=== PATIENT | female | born 1990 | race Caucasian/White ===

== ENCOUNTER 2016-07-18 16:37 | Observation (INO) | payer OTHER ==
[2016-07-18 17:45] LABS: BASOPHIL % 0.2 % (0.0-0.4); Eosinophil % 0.7 % (0.00-5.0); Granulocytes % 74.6 % (36.0-66.0); Lymphocytes % 19.7 % (24.0-44.0); Mean Cell Volume 91.9 fl (78-100); Mean Platelet Volume 10.2 fl (6-9.5); Monocytes % 4.8 % (0.0-12.0); Platelet Count 239 K/mm3 (150-450); Red Blood Count 3.47 M/mm3 (4.1-5.4); Red Cell Distribution Width 13.5 % (11.5-14.0)
[2016-07-18 18:05] LABS: ALBUMIN 2.9 g/dL (3.4-5.0); ALKALINE PHOSPHATASE 118 U/L (46-116); ANION GAP 15.8 MEQ/L (5-15); BILIRUBIN,TOTAL 0.3 mg/dL (0.2-1.0); BLOOD UREA NITROGEN 3 mg/dL (9-20); CHLORIDE 104 mEq/L (98-107); Carbon Dioxide 23.5 mEq/L (21-32); Glucose 106 MG/DL (70-110); Potassium 3.2 mEq/L (3.5-5.1); SGOT/AST 15 U/L (15-37); SGPT/ALT 16 U/L (12-78); SODIUM 140 mEq/L (136-145)
[2016-07-18 18:41] LABS: Mean Corpuscular Hemoglobin 29.6 pg (26-32)
[2016-07-18 21:19] VITALS: BP 116/53; PULSE 67
== END 2016-07-18 19:40 | disposition home or self-care (01) ==
LOC: UNDOADMOB 16:37 → OB 16:37 → UNDODISOB 19:40
PROVIDERS: ADMIT Family Medicine; ATTEND Family Medicine
DX: Z34.83 Encounter for supervision of other normal pregnancy, third trimester (principal)
CPT/HCPCS: 36415; 59025; 80053; 80307; 84550; 85025; G0378

== ENCOUNTER 2016-08-03 13:13 | Inpatient (IN) | payer OTHER ==
[2016-08-03] MEDS ORDERED: Cervidil 10 MG VAG SCH (20:00)
[2016-08-03] MEDS ORDERED: BRETHINE 1 MG/ML SQ PRN (20:00)
[2016-08-03 22:10] LABS: BASOPHIL % 0.2 % (0.0-0.4); Eosinophil % 0.5 % (0.00-5.0); Lymphocytes % 17.2 % (24.0-44.0); Mean Cell Volume 91.2 fl (78-100); Mean Corpuscular Hemoglobin 30.1 pg (26-32); Mean Platelet Volume 11.4 fl (6-9.5); Monocytes % 4.1 % (0.0-12.0); Platelet Count 276 K/mm3 (150-450); Red Blood Count 3.85 M/mm3 (4.1-5.4); Red Cell Distribution Width 13.6 % (11.5-14.0); White Blood Count 15.1 K/mm3 (4.0-10.5)
[2016-08-04] MEDS ORDERED: Nubain 10 MG/ML IV PRN (04:10)
[2016-08-04] MEDS ORDERED: Lactated Ringers 1,000 ML IV ONE (07:37)
[2016-08-04] MEDS ORDERED: Ephedrine Sulfate 50 MG/ML IV PRN (07:46)
[2016-08-04] MEDS: Lactated Ringers 1,000 ML IV ONE (08:00)
[2016-08-04] MEDS: OB EPIDURAL NAROPIN/SUFENTANIL IN NACL EPIDURAL PRN ×2 (08:00→15:36)
[2016-08-04] MEDS: Lactated Ringers 1,000 ML IV SCH ×2 (09:00→15:00)
[2016-08-04] MEDS ORDERED: TYLENOL EXTRA STRENGTH 500 MG PO PRN ×2 (10:26→17:50)
[2016-08-04] MEDS ORDERED: STADOL 2 MG IV PRN (10:26)
[2016-08-04] MEDS ORDERED: Phenergan 25 MG INJ IV PRN (10:26)
[2016-08-04] MEDS ORDERED: Zofran 4 MG/2 ML VIAL IV PRN (10:26)
[2016-08-04] MEDS ORDERED: PITOCIN 30 UNITS/ LR 500 ML 500 ML IV SCH (11:30)
[2016-08-04] MEDS ORDERED: LANSINOH 40 GM TOP PRN (17:50)
[2016-08-04] MEDS ORDERED: Dulcolax 10 MG SUPP PR PRN (17:50)
[2016-08-04] MEDS ORDERED: Restoril 15 MG PO PRN (17:50)
[2016-08-04] MEDS ORDERED: CORTISONE 1% CREAM TP PRN (17:50)
[2016-08-04] MEDS ORDERED: Dermoplast Spray TP PRN (17:50)
[2016-08-04] MEDS ORDERED: Ambien 10 MG PO PRN (17:50)
[2016-08-04] MEDS ORDERED: Anucort-HC SUPPOSITORY PR PRN (17:50)
[2016-08-04] MEDS: TUCKS TP PRN (20:58)
[2016-08-04] MEDS: MOTRIN 400 MG PO PRN (21:15)
[2016-08-04] MEDS: Tylenol #3 Tablet PO PRN (23:44)
[2016-08-04] MEDS: Colace 100 MG PO SCH (23:44)
[2016-08-05] MEDS: Tylenol #3 Tablet PO PRN ×4 (05:34→20:04)
[2016-08-05 06:32] LABS: BASOPHIL % 0.2 % (0.0-0.4); Granulocytes % 67.7 % (36.0-66.0); Mean Cell Volume 93.2 fl (78-100); Mean Platelet Volume 10.9 fl (6-9.5); Monocytes % 7.1 % (0.0-12.0); Platelet Count 229 K/mm3 (150-450); Red Blood Count 2.93 M/mm3 (4.1-5.4); Red Cell Distribution Width 13.8 % (11.5-14.0)
[2016-08-05 06:34] LABS: Mean Corpuscular Hemoglobin 29.6 pg (26-32)
[2016-08-05] MEDS: FERREX 150 PO SCH (08:14)
[2016-08-05] MEDS: MOTRIN 400 MG PO PRN (08:14)
[2016-08-05] MEDS: Colace 100 MG PO SCH ×2 (08:14→20:04)
[2016-08-05] MEDS ORDERED: Adacel Vial IM ONE (09:00)
[2016-08-05] MEDS: Lactated Ringers 1,000 ML IV ONE (10:43)
[2016-08-05] MEDS: Lactated Ringers 1,000 ML IV SCH ×2 (10:44→10:45)
[2016-08-05] MEDS ORDERED: Nicoderm CQ 21 MG TOP SCH (17:00)
[2016-08-05] MEDS: TUCKS TP PRN (20:07)
[2016-08-06] MEDS: Tylenol #3 Tablet PO PRN ×3 (01:24→14:58)
[2016-08-06] MEDS: FERREX 150 PO SCH (08:49)
[2016-08-06] MEDS: Colace 100 MG PO SCH (08:49)
[2016-08-06] MEDS: MOTRIN 400 MG PO PRN (11:30)
[2016-08-06 18:23] VITALS: BP 138/71; PULSE 85
== END 2016-08-06 18:15 | disposition home or self-care (01) | DRG 775 ==
LOC: OB 19:19 → OBSVTOIN 08-04 07:23
PROVIDERS: ADMIT Family Medicine; ATTEND Family Medicine
PROC: 10907ZC Drainage of Amniotic Fluid, Therapeutic from Products of Conception, Via Natural or Artificial Opening (ICD-10-PCS; principal; 2016-08-04)
PROC: 10E0XZZ Delivery of Products of Conception, External Approach (ICD-10-PCS; 2016-08-04)
PROC: 3E0P7GC Introduction of Other Therapeutic Substance into Female Reproductive, Via Natural or Artificial Opening (ICD-10-PCS; 2016-08-04)
DX: O75.5 Delayed delivery after artificial rupture of membranes (principal); Z3A.39 39 weeks gestation of pregnancy; Z37.0 Single live birth; D64.89 Other specified anemias
CPT/HCPCS: 01967; 36415; 80307; 85025; 87086; 90715; G0378; J2300; J2795

== ENCOUNTER 2017-06-13 12:37 | Emergency (ER) | payer OTHER ==
[2017-06-13] MEDS ORDERED: DUONEB 0.5-3 MG/3 ml Neb IH ONE ×2 (13:11→13:29)
--- NOTE | 2017-06-13 13:18 | ERPHSYRPT ---
- History of Present Illness Time Seen by Provider: 06/13/17 12:39 Source: patient, family Exam Limitations: no limitations Patient Subjective Stated Complaint: to er c/o cough and feels it is difficult to take a deep breath. 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 pt states unable to bring up sputum Triage Nursing Assessment: to er c/o cough and difficulty clearing secetions pt states no sob present pt in no distress. Resp easy non labored pt pale/w/d a@ox3 Physician History: non-productive cough x a week; no fever; chills; 22 weeks ; EDC 2;24;18 ; ; no problems with ; sore throat; kids all sick; no or vomiting or diarrhea; no travel; with sinus congestion Timing/Duration: week(s) (1), gradual onset, worse Cough Quality/Degree: mild, dry cough Possible Cause: no prior episodes Modifying Factors: Improves With: coughing Associated Symptoms: cough, nasal congestion, sinus infection, sore throat, wheezing International travel in last 2 weeks: No Allergies/Adverse Reactions: No Known Drug Allergies Allergy (Verified 12/04/15 07:11) Home Medications: No Home Meds [No Home Meds] 1 ea UD 12/04/15 [History] Hx Tetanus, Diphtheria Vaccination/Date Given: No Hx Influenza Vaccination/Date Given: No Hx Pneumococcal Vaccination/Date Given: No - Review of Systems Constitutional: No Symptoms Eyes: No Symptoms Ears, Nose, & Throat: Nose Congestion, Sinus Drainage, Throat Pain, Hoarse, No Ear Pain, No Tinnitus, No Epistaxis, No Stridor Respiratory: Cough, Wheezing, No Cyanosis, No Dyspnea Cardiac: No Chest Pain, No Palpitations, No Syncope Abdominal/Gastrointestinal: Nausea, No Abdominal Pain, No Vomiting, No Diarrhea Genitourinary Symptoms: No Symptoms Musculoskeletal: Myalgias, No Back Pain, No Neck Pain, No Fall, No Joint Redness Skin: No Symptoms Neurological: No Symptoms Psychological: No Symptoms Endocrine: No Symptoms Hematologic/Lymphatic: No Symptoms Immunological/Allergic: No Symptoms - Past Medical History Pertinent Past Medical History: Yes Neurological History: No Pertinent History ENT History: No Pertinent History Cardiac History: No Pertinent History Respiratory History: Bronchitis, Emphysema, Pneumonia Endocrine Medical History: No Pertinent History Musculoskeletal History: No Pertinent History GI Medical History: Gallbladder Disease History: No Pertinent History Psycho-Social History: No Pertinent History Female Reproductive Disorders: No Pertinent History Other Medical History: cholelithasis. meningitis - Past Surgical History Past Surgical History: No Neuro Surgical History: No Pertinent History Cardiac: No Pertinent History Respiratory: No Pertinent History Gastrointestinal: No Pertinent History Genitourinary: No Pertinent History Musculoskeletal: No Pertinent History Female Surgical History: No Pertinent History Other Surgical History: dental wisdom teeth at age 18 - Social History Smoking Status: Current every day smoker How long have you smoked: 6 y Exposure to second hand smoke: No Alcohol Use: Socially Drug Use: none Patient Lives Alone: No Significant Family History: no pertinent family hx - Female History Hx Last Menstrual Period: 10/17/16 Hx Now: Yes Expected Date of Delivery: 08/10/17 - Nursing Vital Signs Nursing Vital Signs: Initial Vital Signs Temperature 98.0 F 06/13/17 12:50 Pulse Rate 70 06/13/17 12:50 Respiratory Rate 18 06/13/17 12:50 Blood Pressure 114/51 06/13/17 12:50 O2 Sat by Pulse Oximetry 97 06/13/17 12:50 Pain Scale Pain Intensity 0 - Physical Exam General Appearance: mild distress, alert, thin, other (22 weeks ) Eye Exam: PERRL/EOMI, eyes nml inspection, No photophobia Ears, Nose, Throat Exam: normal ENT inspection, TMs normal, moist mucous membranes, No pharynx normal (thick pnd), No tonsillar exudate Neck Exam: normal inspection, non-tender, supple, full range of motion, No meningismus, No lymphadenopathy Respiratory Exam: respiratory distress (mild tachypnea), airway intact, wheezing , No chest tenderness, No prolonged expirations, No rhonchi, No stridor Cardiovascular Exam: regular rate/rhythm, normal heart sounds, normal peripheral pulses, capillary refill <2 sec, No murmur Gastrointestinal/Abdomen Exam: soft, normal bowel sounds, distention (22 weeks ), other (god movement and FHT), No tenderness, No rebound, No organomegaly Pelvic Exam: deferred Rectal Exam: deferred Back Exam: normal inspection, normal range of motion, No CVA tenderness Extremity Exam: normal inspection, normal range of motion, No abel's sign, No pedal edema Neurologic Exam: alert, oriented x 3, cooperative, braille proofreader II-XII nml as tested, normal mood/affect, nml cerebellar function, nml station & gait Skin Exam: normal color, warm, dry, No rash, No petechiae Lymphatic Exam: No adenopathy SpO2 Interpretation: normal SpO2: 96 Oxygen Delivery: Room Air - Course Nursing assessment & vital signs reviewed: Yes Ordered Tests: Active Orders 24 hr Category Date Time Status Pulse Oximetry (ED) STAT Care 06/13/17 13:11 Active Re-Check Vital Signs STAT Care 06/13/17 13:12 Active Peak Expiratory Flow Rate ONCE RT 06/13/17 13:11 Completed Respiratory Nebulizer STAT RT 06/13/17 13:12 Completed Medication Summary Discontinued Medications Generic Name Dose Route Start Last Admin Trade Name Freq PRN Reason Stop Dose Admin Albuterol/Ipratropium 3 ml 06/13/17 13:11 06/13/17 13:31 Duoneb 0.5-3 Mg/3 Ml Neb IH 06/13/17 13:12 3 ml STAT ONE Administration Albuterol/Ipratropium Confirm 06/13/17 13:29 Duoneb 0.5-3 Mg/3 Ml Neb Administered 06/13/17 13:30 Dose 3 ml IH .STK-MED ONE Lab/Rad Data: Laboratory Results 06/13/17 Range/Units Unknown Influenza Type A Ag NEGATIVE (NEGATIVE) Influenza Type B Ag NEGATIVE (NEGATIVE) RSV (PCR) NEGATIVE (Negative) reviewed - Progress Progress: improved (after treatments), re-examined (after labs and resp treatment) Air Movement: fair Progress Note: 06/13/17 13:18 will give duonebs and check resp lab and recheck; family at bedside 06/13/17 13:46 peak flow pre 300/ post 350 will recheck 06/13/17 14:07 rechecked and some improvement clinically post duoneb; BS improved; cough decrease; less wheezing; will monitor and recheck after labs; smoking cessation discussed 06/13/17 14:47 influ and rsv neg 06/13/17 14:51 rechecked and mild improvement; went over findigns and lab; instructions given Blood Culture(s) Obtained: No Counseled pt/family regarding: lab results, diagnosis, need for follow-up, smoking cessation - Departure Time of Disposition: 14:52 Departure Disposition: Home Clinical Impression: , URI with cough and congestion Condition: Stable Critical Care Time: No Referrals: ROBBY SCHMITZ [Primary Care Provider] - Instructions: Cough -- Adult Additional Instructions: clear fluids; rest; stop smoking ; follow up lmd Follow-up with family doctor as directed. Call for appointment. Return if any problems. If you smoke please stop. Call or follow up with your family doctor for assistance if you need it to stop. Please wear your seatbelt when driving. Have a nice day. Thank you for allowing us to participate in your care today. :o) Dr Morris Cuenca
[2017-06-13 14:01] VITALS: O2SAT 96
[2017-06-13 14:54] VITALS: BP 114/51; PULSE 76
== END 2017-06-13 14:59 | disposition home or self-care (01) ==
LOC: ED 12:37
DX: O26.892 Other specified pregnancy related conditions, second trimester (principal); Z3A.22 22 weeks gestation of pregnancy; J06.9 Acute upper respiratory infection, unspecified; R05 Cough; R09.81 Nasal congestion
CPT/HCPCS: 87631; 94150; 94640; 99283; A9270-GY

== ENCOUNTER 2017-07-30 16:18 | Observation (INO) | payer OTHER ==
[2017-07-30 16:28] VITALS: O2SAT 100
[2017-07-30] MEDS ORDERED: BACIGUENT PACKET TP ONE (16:33)
[2017-07-30] MEDS ORDERED: BACIGUENT PACKET ONE ×2 (16:34→17:06)
--- NOTE | 2017-07-30 16:39 | ERPHSYRPT ---
- History of Present Illness Time Seen by Provider: 07/30/17 16:29 Source: patient Exam Limitations: no limitations Physician History: 26-year-old white female who states she is 39 weeks . Arrives with complaint of pain and abrasion to her right forearm. Patient states she fell at 2:30. She denies any other complaints she denies any abdominal pain she states her baby is moving around fine. Past medical history includes bronchitis, emphysema, pneumonia, gallbladder disease, cholelithiasis, meningitis. Past surgical history includes wisdom teeth. Occurred: this afternoon (2:30 this afternoon) Method of Injury: fell (slipped on ice) Severity of Pain-Max: mild Severity of Pain-Current: mild Extremities Pain Location: forearm: right Modifying Factors: Improves With: nothing Associated Symptoms: none Allergies/Adverse Reactions: No Known Drug Allergies Allergy (Verified 07/30/17 17:07) Home Medications: Hydroxyzine HCl 25 mg [Atarax 25 mg] 25 mg PO BID 07/30/17 [History] Hx Tetanus, Diphtheria Vaccination/Date Given: No Hx Influenza Vaccination/Date Given: No Hx Pneumococcal Vaccination/Date Given: No - Review of Systems Constitutional: No Fever, No Chills Eyes: No Symptoms Ears, Nose, & Throat: No Symptoms Respiratory: No Cough, No Dyspnea Cardiac: No Chest Pain, No Edema, No Syncope Abdominal/Gastrointestinal: Other (patient is 39 weeks ), No Abdominal Pain, No Nausea, No Vomiting, No Diarrhea Genitourinary Symptoms: No Dysuria Musculoskeletal: Other (right forearm pain) Skin: Other (several small abrasions to proximal right forearm ulnar aspect) Neurological: No Dizziness, No Focal Weakness, No Sensory Changes Psychological: No Symptoms Endocrine: No Symptoms All Other Systems: Reviewed and Negative - Past Medical History Pertinent Past Medical History: Yes Neurological History: No Pertinent History ENT History: No Pertinent History Cardiac History: No Pertinent History Respiratory History: Bronchitis, Emphysema, Pneumonia Endocrine Medical History: No Pertinent History Musculoskeletal History: No Pertinent History GI Medical History: Gallbladder Disease History: No Pertinent History Psycho-Social History: No Pertinent History Female Reproductive Disorders: No Pertinent History Other Medical History: cholelithasis. meningitis - Past Surgical History Past Surgical History: No Neuro Surgical History: No Pertinent History Cardiac: No Pertinent History Respiratory: No Pertinent History Gastrointestinal: No Pertinent History Genitourinary: No Pertinent History Musculoskeletal: No Pertinent History Female Surgical History: No Pertinent History Other Surgical History: dental wisdom teeth at age 18 - Social History Smoking Status: Current every day smoker How long have you smoked: 6 y Exposure to second hand smoke: No Alcohol Use: Socially Drug Use: none Patient Lives Alone: No Significant Family History: no pertinent family hx - Female History Hx Now: Yes (shield abdomen) - Nursing Vital Signs Nursing Vital Signs: Initial Vital Signs Temperature 98.2 F 07/30/17 16:26 Pulse Rate 78 07/30/17 16:26 Respiratory Rate 18 07/30/17 16:26 Blood Pressure 134/92 07/30/17 16:26 O2 Sat by Pulse Oximetry 100 07/30/17 16:26 Pain Scale Pain Intensity 4 - Physical Exam General Appearance: alert Eyes, Ears, Nose, Throat Exam: moist mucous membranes Neck Exam: non-tender, supple Cardiovascular/Respiratory Exam: chest non-tender, normal breath sounds, regular rate/rhythm, no respiratory distress Abdominal Exam: non-tender, No guarding Back Exam: normal inspection, No vertebral tenderness Shoulder Exam: normal inspection, non-tender, no evidence of injury, normal ROM Elbow/Forearm Exam: pain (Pain with palpation and movement right proximal forearm) Wrist Exam: normal inspection, non-tender, no evidence of injury, normal ROM Hand Exam: normal inspection, non-tender, no evidence of injury, normal ROM DTR - Upper Extremity Exam: tricep (R): 2+, tricep (L): 2+ Neuro/Tendon Exam: normal sensation, normal motor functions Mental Status Exam: alert, oriented x 3, cooperative Skin Exam: other (several small abrasions right forearm proximally ulnar aspect) SpO2 Interpretation: normal (100%) SpO2: 100 Oxygen Delivery: Room Air - Course Nursing assessment & vital signs reviewed: Yes - Radiology Exams Left Forearm X-ray Interpretation: Interpreted by me, No Fracture, No Subluxation Ordered Tests: Active Orders 24 hr Category Date Time Status Heart Tones-ED STAT Care 07/30/17 16:32 Active Wound Care STAT Care 07/30/17 16:33 Active FOREARM Stat Exams 07/30/17 16:33 Taken Medication Summary Discontinued Medications Generic Name Dose Route Start Last Admin Trade Name Freq PRN Reason Stop Dose Admin Bacitracin 0.9 gm 07/30/17 16:33 07/30/17 17:07 Baciguent Packet TP 07/30/17 16:34 0.9 gm STAT ONE Administration Bacitracin Confirm 07/30/17 16:34 Baciguent Packet Administered 07/30/17 16:35 Dose 1 gm .ROUTE .STK-MED ONE Bacitracin Confirm 07/30/17 17:06 Baciguent Packet Administered 07/30/17 17:07 Dose 1 gm .ROUTE .STK-MED ONE - Progress Progress: improved Progress Note: 07/30/17 16:38 This is a 26-year-old white female who states she is 39 weeks . She is complaining of pain in her right proximal forearm after falling on the ice this afternoon around 2:30. She denies other injury she has no abdominal pain she states that her baby is moving around fine. She does state that she has pain with movement and palpation to the right proximal forearm she has several small abrasions to the right proximal forearm ulnar aspect. She has full range of motion to her right wrist hand and fingers shoulder. heart tones have been done by the nurse that R1 147 abdomen is nontender. Will go ahead and x-ray the right forearm. We will shield the abdomen. Will have nurse clean the abrasions to her right forearm and apply bacitracin. 07/30/17 17:01 I've discussed patient's case with Dr. Ramos. Patient states she hit her left elbow and landed on her buttocks when she fell. Dr. Ramos requests that the patient be sent to labor and delivery have an ultrasound and be monitored for 4 hours. - Departure Time of Disposition: 17:20 Departure Disposition: Observation Clinical Impression: Accidental fall Qualifiers: Encounter type: initial encounter Qualified Code(s): W19.XXXA - Unspecified fall, initial encounter Contusion of left elbow Qualifiers: Encounter type: initial encounter Qualified Code(s): S50.02XA - Contusion of left elbow, initial encounter Qualifiers: Weeks of gestation: 39 weeks Qualified Code(s): Z3A.39 - 39 weeks gestation of Condition: Fair Critical Care Time: No Referrals: ROBBY RAMOS [Primary Care Provider] -
--- NOTE | 2017-07-30 20:43 | XRAY ---
Indication: Status post fall. 2-dimensional OB ultrasound performed. Comparison: July 26, 2017. Again is a single viable intrauterine in cephalic presentation. heart rate 129 BPM. Normal three-vessel cord and cord insertion previously documented. Visualized stomach and bladder are unremarkable. Placenta is again anterior fundal without abruption/previa. BPD measures 9.39 cm corresponding to 38 weeks 2 day. HC measures 33.50 cm corresponding to 38 weeks 2 days. AC measures 34.71 cm corresponding to 38 weeks 4 day. FL measures 7.40 cm corresponding to 37 weeks 6 days. DANNY is 8.8 cm. Impression: Again single viable intrauterine with mean gestational age 38 weeks 2 day. No new/acute findings. Comment: Preliminary report was given.
--- NOTE | 2017-07-30 21:00 | XRAY ---
Indication: Pain following fall. 36 weeks . Comparison: None 2 views of the right forearm obtained with patient appropriately shielded. No bony, articular, or soft tissue abnormalities.
[2017-07-30 22:20] VITALS: BP 124/72; PULSE 92
== END 2017-07-30 21:45 | disposition home or self-care (01) ==
LOC: ED 16:18 → OB 17:36
PROVIDERS: ADMIT Family Medicine; ATTEND Family Medicine
DX: Z34.83 Encounter for supervision of other normal pregnancy, third trimester (principal)
CPT/HCPCS: 73090; 76805; 99285; G0378; A9270-GY

== ENCOUNTER 2017-08-04 14:28 | Observation (INO) | payer OTHER ==
[2017-08-04 14:57] VITALS: BP 117/75; PULSE 88
== END 2017-08-04 15:33 | disposition home or self-care (01) ==
LOC: OB 14:28
PROVIDERS: ADMIT Family Medicine; ATTEND Family Medicine
DX: Z34.83 Encounter for supervision of other normal pregnancy, third trimester (principal)

== ENCOUNTER 2017-08-06 16:21 | Inpatient (IN) | payer OTHER ==
[2017-08-06] MEDS ORDERED: XYLOCAINE 1% HCL 20 ML MDV IJ PRN (16:33)
[2017-08-06] MEDS ORDERED: Nubain 10 MG/ML IV PRN (16:33)
[2017-08-06] MEDS ORDERED: Phenergan 25 MG INJ IV PRN (16:33)
[2017-08-06] MEDS ORDERED: STADOL 2 MG IV PRN (16:33)
[2017-08-06] MEDS ORDERED: Zofran 4 MG/2 ML VIAL IV PRN (16:33)
[2017-08-06] MEDS ORDERED: Lactated Ringers 1,000 ML IV SCH (17:00)
[2017-08-06] MEDS ORDERED: PITOCIN 30 UNITS/ LR 500 ML 500 ML IV SCH (17:00)
[2017-08-06] MEDS ORDERED: Ephedrine Sulfate 50 MG/ML IV PRN (17:02)
[2017-08-06] MEDS ORDERED: OB EPIDURAL NAROPIN/SUFENTANIL IN NACL EPIDURAL PRN (17:02)
[2017-08-06] MEDS ORDERED: Lactated Ringers 1,000 ML IV ONE (17:02)
[2017-08-06 19:29] VITALS: O2SAT 100
[2017-08-06 19:32] LABS: BASOPHIL % 0.3 % (0.0-0.4); Basophil (Absolute #) 0.04 (0-0.4); Eosinophil % 0.5 % (0.00-5.0); Eosinophil (Absolute #) 0.07 (0-0.5); Granulocyte Absolute (ANC) 12.33 (1.4-6.9); Granulocytes % 79.6 % (36.0-66.0); Hematocrit 33.4 % (35-47); Hemoglobin 10.9 gm/dl (12.0-16.0); Lymphocyte (Absolute #) 2.28 (1.0-4.6); Lymphocytes % 14.7 % (24.0-44.0); Mean Cell Volume 91.8 fl (78-100); Mean Corpuscular Hemoglobin 29.9 pg (26-32); Mean Corpuscular Hgb Concent. 32.6 g/dl (32-36); Mean Platelet Volume 10.5 fl (6-9.5); Monocyte (Absolute #) 0.76 (0.0-1.3); Monocytes % 4.9 % (0.0-12.0); Platelet Count 258 K/mm3 (150-450); Red Blood Count 3.64 M/mm3 (4.1-5.4); Red Cell Distribution Width 13.9 % (11.5-14.0); White Blood Count 15.5 K/mm3 (4.0-10.5)
[2017-08-06] MEDS ORDERED: Dermoplast Spray TP PRN (19:36)
[2017-08-06] MEDS ORDERED: Anucort-HC SUPPOSITORY PR PRN (19:36)
[2017-08-06] MEDS ORDERED: Dulcolax 10 MG SUPP PR PRN (19:36)
[2017-08-06] MEDS ORDERED: TUCKS TP PRN (19:36)
[2017-08-06] MEDS ORDERED: Restoril 15 MG PO PRN (19:36)
[2017-08-06] MEDS ORDERED: Ambien 10 MG PO PRN (19:36)
[2017-08-06] MEDS ORDERED: Mylicon 80MG PO PRN (19:36)
[2017-08-06] MEDS ORDERED: CORTISONE 1% CREAM TP PRN (19:36)
[2017-08-06] MEDS ORDERED: LANSINOH 40 GM TOP PRN (19:36)
[2017-08-06] MEDS: MOTRIN 400 MG PO PRN (19:43)
[2017-08-06 21:30] LABS: Amphetamine,Urine POS. (NEGATIVE); Barbiturate,Urine NEG. (NEGATIVE); Benzodiazepine,Urine NEG. (NEGATIVE); Cocaine,Urine NEG. (NEGATIVE); Methadone,Urine NEG. (NEGATIVE); Opiate,Urine NEG. (NEGATIVE); PCP,Urine NEG. (NEGATIVE); THC,Urine NEG. (NEGATIVE)
[2017-08-06] MEDS: TYLENOL EXTRA STRENGTH 500 MG PO PRN (22:42)
[2017-08-06] MEDS: Colace 100 MG PO SCH (22:43)
[2017-08-07] MEDS: NORCO 5/325 MG PO PRN ×3 (02:52→17:54)
[2017-08-07] MEDS: MOTRIN 400 MG PO PRN ×2 (02:52→12:35)
[2017-08-07 06:31] LABS: BASOPHIL % 0.2 % (0.0-0.4); Basophil (Absolute #) 0.03 (0-0.4); Eosinophil (Absolute #) 0.24 (0-0.5); Granulocyte Absolute (ANC) 7.82 (1.4-6.9); Granulocytes % 64.4 % (36.0-66.0); Hematocrit 30.3 % (35-47); Hemoglobin 9.8 gm/dl (12.0-16.0); Lymphocyte (Absolute #) 3.12 (1.0-4.6); Lymphocytes % 25.7 % (24.0-44.0); Mean Cell Volume 92.9 fl (78-100); Mean Corpuscular Hgb Concent. 32.3 g/dl (32-36); Mean Platelet Volume 10.9 fl (6-9.5); Monocyte (Absolute #) 0.94 (0.0-1.3); Monocytes % 7.7 % (0.0-12.0); Platelet Count 242 K/mm3 (150-450); Red Blood Count 3.26 M/mm3 (4.1-5.4); White Blood Count 12.2 K/mm3 (4.0-10.5)
[2017-08-07] MEDS: Colace 100 MG PO SCH (08:17)
[2017-08-07] MEDS: FERREX 150 PO SCH (08:18)
[2017-08-08] MEDS: Colace 100 MG PO SCH ×2 (00:34→08:38)
[2017-08-08] MEDS: MOTRIN 400 MG PO PRN ×2 (00:35→12:50)
[2017-08-08] MEDS: FERREX 150 PO SCH (08:38)
[2017-08-08] MEDS: TYLENOL EXTRA STRENGTH 500 MG PO PRN ×2 (08:38→15:51)
--- NOTE | 2017-08-08 09:19 | PCM.DS ---
Discharge Summary Date of Admission: 08/06/17 16:21 Admitting Physician: ROBBY SCHMITZ Consults: Consults on Case 08/06/17 19:36 Notify Physician ROUTINE Primary Care Provider: ROBBY SCHMITZ Allergies Allergies No Known Drug Allergies Allergy (Verified 08/06/17 17:06) Hospital Summary - Hospital Course Hospital Course: Pt is 26 yo admitted at term in active labor at 5cm dilated. Pt got her epidural and quickly progressed to complete. Delivered with basically 1 push viable male . Meconium stained fluid, D-chelle suctioned immediately after and no complications. Pt doing well, no dizziness. Up out of bed. Pt with hx of opioid use disorder and UDS positive for amphetamines here. CPS is involved and will apparently be taking the baby for several weeks (meconium screen pending). - Vitals & Intake/Output Vital Signs: Vital Signs Temperature 97.8 F 08/08/17 01:15 Pulse Rate 60 08/08/17 01:15 Respiratory Rate 18 08/08/17 01:15 Blood Pressure 105/58 08/08/17 01:15 O2 Sat by Pulse Oximetry 100 08/06/17 18:16 Intake & Output: Intake & Output 08/05/17 08/06/17 08/07/17 08/08/17 11:59 11:59 11:59 11:59 Intake Total 1906 1640 Balance 1906 1640 Weight 76.204 kg - Lab Result Diagrams: 08/07/17 05:22 Discharge Exam General Appearance: no apparent distress, alert Neurologic Exam: oriented x 3, cooperative Skin Exam: normal color, warm, dry, No rash Respiratory Exam: normal breath sounds, lungs clear, No crackles/rales, No rhonchi, No wheezing Cardiovascular Exam: regular rate/rhythm, normal heart sounds, No murmur Gastrointestinal/Abdomen Exam: soft, tenderness, other (fundus firm under umbilicus) Extremity Exam: normal inspection, No pedal edema, No swelling Back Exam: normal inspection Final Diagnosis/Problem List - Final Discharge Diagnosis/Problem (1) Vaginal delivery Current Visit: Yes Status: Acute (2) Opiate abuse, episodic Current Visit: Yes Status: Acute (3) Amphetamine abuse Current Visit: Yes Status: Acute - Discharge Disposition: Home, Self-Care Condition: Good Prescriptions: New Ferrous Sulfate 325 mg PO DAILY #30 tablet.dr Zuñiga Hydroxyzine HCl 25 mg [Atarax 25 mg] 25 mg PO BID Follow up with: ROBBY SCHMITZ [Primary Care Provider] - 1 Week
[2017-08-08 18:51] VITALS: BP 143/72; PULSE 75
== END 2017-08-08 18:17 | disposition home or self-care (01) | DRG 775 ==
LOC: OB 16:21 → OBSVTOIN 16:21
PROVIDERS: ADMIT Family Medicine; ATTEND Family Medicine
PROC: 10E0XZZ Delivery of Products of Conception, External Approach (ICD-10-PCS; principal; 2017-08-06)
DX: O80 Encounter for full-term uncomplicated delivery (principal); Z3A.39 39 weeks gestation of pregnancy; Z37.0 Single live birth
CPT/HCPCS: 01967; 36415; 59025; 80307; 85025; 94799; G0378; J2590; J2795; A9270-GY

== ENCOUNTER 2017-09-21 09:59 | Day surgery (SDC) | payer OTHER ==
--- NOTE | 2017-09-21 08:55 | HP ---
DATE OF SURGERY: 09/21/2017 ADMISSION DIAGNOSIS: Multiparity. ANTICIPATED PROCEDURE: Tubal ligation. HISTORY OF PRESENT ILLNESS: The patient is 5, para 5 desiring tubal ligation and presents for such. PAST MEDICAL HISTORY: ALLERGIES: NONE. MEDICATIONS: None. PAST SURGICAL HISTORY: None. SOCIAL HISTORY: One pack per day. ETOH negative. FAMILY HISTORY: Negative. PHYSICAL EXAMINATION: VITAL SIGNS: Normal. CHEST: Clear. COR: Regular. IMPRESSION: Multiparity. PLAN: Tubal ligation.
[~2017-09-21 09:59] MED LIST: Lactated Ringers 1,000 ML IV ONE; Sensorcaine 0.25% 10 ML ONE
[2017-09-21] MEDS ORDERED: Zofran 4 MG/2 ML VIAL IV ONE (10:00)
[2017-09-21] MEDS ORDERED: DIPRIVAN 200 MG/20 ML IV ONE (10:00)
[2017-09-21] MEDS ORDERED: SUBLIMAZE 100 MCG/2 ML IV ONE (10:00)
[2017-09-21] MEDS ORDERED: Decadron 4 MG INJ IV ONE (10:00)
[2017-09-21] MEDS ORDERED: Zemuron 100 MG/10 ML IV ONE (10:00)
[2017-09-21] MEDS ORDERED: Quelicin Fliptop 200 MG/10 ML IV ONE (10:00)
[2017-09-21] MEDS ORDERED: BRIDION 200MG/2ML IV ONE (10:00)
[2017-09-21] MEDS ORDERED: TORAdol 30 mg Injection IV ONE (10:00)
[2017-09-21 10:56] LABS: Amphetamine,Urine NEGATIVE (NEGATIVE); Barbiturate,Urine NEGATIVE (NEGATIVE); Benzodiazepine,Urine NEGATIVE (NEGATIVE); Cocaine,Urine NEGATIVE (NEGATIVE); Methadone,Urine NEGATIVE (NEGATIVE); Opiate,Urine NEGATIVE (NEGATIVE); PCP,Urine NEGATIVE (NEGATIVE); THC,Urine NEGATIVE (NEGATIVE)
[2017-09-21] MEDS ORDERED: Lactated Ringers 1,000 ML IV SCH (11:00)
[2017-09-21] MEDS ORDERED: CEFAZOLIN 2 GM-D5W BAG** 2 GM/50 ML ML IV SCH (11:00)
[2017-09-21] MEDS ORDERED: Sensorcaine 0.25% 10 ML ONE (11:25)
[2017-09-21] MEDS ORDERED: TORAdol 30 mg Injection ONE (12:08)
[2017-09-21 13:07] VITALS: BP 143/81; PULSE 71; O2SAT 100
--- NOTE | 2017-09-22 09:37 | OP ---
SURGERY DATE/TIME: 09/21/2017 1133 PREOPERATIVE DIAGNOSIS: Multiparity. POSTOPERATIVE DIAGNOSIS: Multiparity. PROCEDURE: Bilateral tubal ligation, laparoscopic fulguration technique. SURGEON: Ricardo Carr M.D. ANESTHESIA: General. COMPLICATIONS: None. CONDITION: Stable. INDICATION: The patient has had five children. She desires to have infertility. DESCRIPTION OF PROCEDURE: Taken to surgery. General anesthetic. Routine prep and drape. Infraumbilical Veress needle. A 5 port placed. A 5 port placed laterally to the right. Good visualization. Both tubes totally free. They were traced up the fimbria. Mid-section 2.5 cm of the right. The burn was complete. It did not extend to the pelvic side wall and about half way down mesosalpinx. Right mid tube burning extended about half way down well away from the pelvic side wall well away from the ureter. Both tubes were retraced out. Satisfactory transmural coagulation was felt to be present. CO2 had been exsufflated. Skin closed with 4-0 Vicryl and Steri-Strips. The patient tolerated the procedure satisfactorily.
== END 2017-09-21 13:21 | disposition home or self-care (01) ==
LOC: SDC 09:59
PROVIDERS: ATTEND Surgery
PROC: 0U574ZZ Destruction of Bilateral Fallopian Tubes, Percutaneous Endoscopic Approach (ICD-10-PCS; principal; 2017-09-21)
DX: Z30.2 Encounter for sterilization (principal); Z72.0 Tobacco use
CPT/HCPCS: 80307; 84703; 87086; J0330; J0690; J1100; J1885; J2405; J2704; J3010